=== PATIENT | female | born 1975 | race Caucasian/White ===

== ENCOUNTER 2024-10-31 15:47 | Outpatient (AMB) | payer OTHER, SELFPAY ==
--- NOTE | 2024-10-31 15:55 | A.OFFPC_ITS ---
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 Weatherization Installer Required: No Accompanied by: Self / Same As Patient Allergies No Known Allergies Allergy (Verified 10/31/24 15:56) Tobacco use date assessed: 10/31/24 Dental Screening Dental Screen Date: 10/31/24 Did you have a dental visit in the last 12 months?: Yes Did you have a dental problem in the last 6 months where you did not have access to dental care?: No Was dental information given to patient?: Patient has dentist HPI HPI Comments History of Present Illness Details History of Present Illness The patient is a 49-year-old female presenting with multiple chronic conditions including fibromyalgia, neuropathy, diabetes, and hypertension. Fibromyalgia: - The patient reports fibromyalgia, a ch ronic condition characterized by widespread musculoskeletal pain. Neuropathy: - The patient experiences neuropathy not related to diabetes, possibly associated with fibromyalgia. Diabetes Mellitus: - The patient has a history of diabetes mellitus and is advised to have regular ophthalmology and podiatry evaluations. Hypertension: - The patient has a history of hypertens ion and is currently on medication management. Cardiac Arrhythmia: - The patient has cardiac arrhythmia and is on metoprolol and diltiazem for management. Sleep Apnea: - The patient uses a CPAP machine for sl eep apnea management. Anxiety and Depression: - The patient is treated for anxiety and depression with Cymbalta and Ambien. Health Maintenance - Mammogram recommended due to the patie nt's age and history. - Regular ophthalmology and podiatry jose galloway advised for diabetes management. Review of Systems - Musculoskeletal: Reports widespread mu sculoskeletal pain. - Neurological: Reports neuropathy not r elated to diabetes. - Cardiovascular: Reports tachycardia an d cardiac arrhythmia. - Respiratory: Reports use of CPAP machi ne for sleep apnea. - Psychiatric: Reports anxiety and depre ssion, treated with medication. 10-point ROS reviewed and negative excep t as noted in HPI Allergies Medications - Metoprolol for cardiac arrhythmia - Diltiazem for cardiac arrhythmia - Cymbalta for anxiety and depression - Ambien for insomnia related to anxiety and depression Medication History - Metoprolol: Used for cardiac arrhythmi a, no adverse effects reported. - Diltiazem: Used for cardiac arrhythmia , no adverse effects reported. - Cymbalta: Used for anxiety and depress ion, no adverse effects reported. - Ambien: Used for insomnia related to a nxiety and depression, no adverse effects reported. Current Substance Use Substance Use History Past Medical History - Fibromyalgia - Neuropathy - Diabetes Mellitus - Gastroesophageal Reflux Disease (GERD) - Hypertension - Pulmonary Artery Disease - Osteoarthritis - Spondylosis - Scoliosis - Knee Fracture - Cardiac Arrhythmia - Tachycardia - Sleep Apnea - Anxiety - Depression Past Surgical History Family History Social History - The patient lives with her niece and h davian, having moved from [place] last year. - Reports normal dietary habits and cont inues to consume sweets despite diabetes. Physical Exam General: No apparent distress. Alert and oriented x 3. Head: Normocephalic, atraumatic Eyes: Pupils equal, round, and reactive to light. Extraocular movements intact Throat: O ropharynx clear. Mucus membranes moist Neck: Supple. No l eft anterior descending artery distention. No jugular vein distention. No bruit. Cardiovascular: Irregular rate and rhythm. Cardiac arrhythmia noted. Normal S1 and S2. No murmurs, rubs, or gallops Lungs: Clear to auscultation bilaterally. Breath sounds equal bilaterally. No rales, ronchi, or wheezes. Abdomen: Non-tender. Non-distended. Bowel sounds auscultated. No hepatosplenomegaly. No mass/rebound/guarding Extremities: No c lubbing, cyanosis, and edema. 2+ pulses Neuro: Central nerves II-XII grossly intact. Motor/sensory intact. Reflexes 2. Gait normal Skin: Warm, dry, and intact. No rash. Discussion Notes I discussed with the patient the need for regular follow-ups with specialists including ophthalmology and podiatry for diabetes management. We also talked about the importance of mammograms and other preventative screenings. I provided referrals to various specialists and emphasized the importance of adhering to prescribed medications and lifestyle modifications. Plan 1. Fibromyalgia M79.7 - Referral to rheumatology for further m anagement. 2. Polyneuropathy, unspecified G62 .9 - Referral to neurology for further eval uation. 3. Type 2 diabetes mellitus without comp lications E11.9 HCC 19 - Recommended regular ophthalmology and podiatry evaluations. 4. Essential (primary) hypertension I10 - Continue current medication regimen an d monitor blood pressure regularly. 5. Cardiac arrhythmia, unspecified I49.9 - Continue metoprolol and diltiazem; ref erral to cardiology for further management. 6. Sleep apnea, unspecified G47.30 - Continue use of CPAP machine; referral to sleep specialist for follow-up. 7. Anxiety disorder, unspecified F 41.9 - Continue current medication regimen; r eferral to therapist for ongoing support. Patient Instructions - Follow up with specialists as referred , including rheumatology, neurology, cardiology, and sleep specialist. - Continue using CPAP machine for sleep apnea. - Maintain current medication regimen an d monitor symptoms. - Schedule regular ophthalmology and pod iatry appointments for diabetes management. - Schedule a mammogram as part of preven tative care. [facility] Family History (Updated 10/31/24 @ 16:23 by Queta Castañeda MA) Father Heart problem Diabetes Mother Fibromyalgia Diabetes High blood pressure Social History (Updated 10/31/24 @ 15:58 by Queta Castañeda MA) Housing: Apartment Alcohol intake: current Alcohol intake frequency: does not drink Patient Tobacco Use Status: Current everyday Tobacco user Cigarettes Per Day: 4 service: No Current occupational status: disabled Cognitive needs: No Hearing needs: No Vision needs: Yes (rx glasses) Questionnaire PHQ-9 Over the last 2 weeks, how often have you been bothered by any of the following problems? 1. Little interest or pleasure in doing things: several days 2. Feeling down, depressed, or hopeless: several days 3. Trouble falling or staying asleep, or sleeping too much: not at all 4. Feeling tired or having little energy: nearly every day 5. Poor appetite or overeating: not at all 6. Feeling bad about yourself - or that you are a failure or have let yourself or your family down: not at all 7. Trouble concentrating on things, such as reading the newspaper or watching television: not at all 8. Moving or speaking so slowly that other people could have noticed. Or the opposite - being so fidgety or restless that you have been moving around a lot more than usual: not at all 9. Thoughts that you would be better off or of hurting yourself in some way: not at all Total score: 5 Depression Screening Interpretation: Negative Depression Screening Done: Yes Source: Developed by Drs. Joni Casas, Claudio Merida and colleagues, with an educational meggan from [employer]. Thrive Questionnaire Date Thrive assessed: 10/31/24 I am a: Patient What is your living situation today?: I have a steady place to live Within the past 12 months, did the food you bought not last and you didn't have the money to get more?: Never true Within the past 12 months, did you worry whether your food would run out before you got money to buy more?: Never true Do you have trouble paying for medicines?: No Do you have trouble getting transportation to medical appointments?: Yes Do you have trouble paying your heating and electricity bill?: No Do you have trouble taking care of your child, family member or friend?: No Are you currently unemployed and looking for a job?: No Are you interested in more education?: No Please select the resources that you would like help with: None Currently or been in a relationship where the following occur: No concerns reported THRIVE Score: 1 AUDIT C Alcohol Use Questionnaire (AUDIT-C) 1. How often do you have a drink containing alcohol?: Never 3. How often do you have six or more drinks on one occasion?: Never Total Score: 0 HINA-7 AMB Questionnaire HINA-7 Date HINA - 7 assessed: 10/31/24 Feeling nervous, anxious, or on edge: 2 = More than half the days Not being able to stop or control worryin = More than half the days Worrying too much about different things: 2 = More than half the days Trouble relaxin = More than half the days Being so restless that it is hard to sit still: 2 = More than half the days Becoming easily annoyed or irritable: 1 = Several days Feeling afraid as if something awful might happen: 0 = Not at all Total HINA-7 score (0-4 normal; 5-9 mild; 10-14 moderate; 15-21 severe): 11 Source: Developed by Luma De Guzman Kurt Kroenke and colleagues, with an educational meggan from [employer]. Physical exam (Primary Care) BMI result Body Mass Index 39.4 Tobacco/Smoking Status: Tobacco use Status Tobacco use date assessed 10/31/24 10/31/24 16:00 Patient Tobacco Use Status Never used Tobacco 10/31/24 16:00 PHQ-9: PHQ-9 Score PHQ-9: Total score 5 10/31/24 16:00 Depression Screening Interpretation: Negative Thrive Assessment: Date of Thrive Assessment Date Thrive assessed 10/31/24 10/31/24 16:00 Currently or been in a relationship where the following occur: No concerns reported Coding Level of Care Code New Pt Level 3 (87307) Diagnoses Encounter to establish care Z76.89 Routine lab draw Z01.89 Screening for lipoid disorders Z13.220 Screening for HIV (human immunodeficiency virus) Z11.4 Hypertension screen Z13.6 Encounter for screening, unspecified Z13.9 Adjustment disorder with anxiety F43.22 Class 2 obesity E66.812 Diabetes type 2 E11.9 Tachycardia R00.0 Arthritis, rheumatoid M06.9 Fibromyalgia M79.7 Arrhythmia I49.9 Pulmonary hypertension I27.20 Obstructive sleep apnea G47.33 Anxiety and depression F41.9; F32.A Psychosis F29 Screening for malignant neoplasm of breast Z12.39 Assessment & Plan Assessment & Plan (1) Encounter to establish care: Code(s): Z76.89 - Persons encountering health services in other specified circumstances (2) Routine lab draw: Code(s): Z01.89 - Encounter for other specified special examinations (3) Screening for lipoid disorders: Code(s): Z13.220 - Encounter for screening for lipoid disorders (4) Screening for HIV (human immunodeficiency virus): Code(s): Z11.4 - Encounter for screening for human immunodeficiency virus [HIV] (5) Hypertension screen: Code(s): Z13.6 - Encounter for screening for cardiovascular disorders (6) Encounter for screening, unspecified: Code(s): Z13.9 - Encounter for screening, unspecified (7) Adjustment disorder with anxiety: Code(s): F43.22 - Adjustment disorder with anxiety (8) Class 2 obesity: Code(s): E66.812 - Obesity, class 2 (9) Diabetes type 2: Code(s): E11.9 - Type 2 diabetes mellitus without complications (10) Tachycardia: Code(s): R00.0 - Tachycardia, unspecified (11) Arthritis, rheumatoid: Code(s): M06.9 - Rheumatoid arthritis, unspecified (12) Fibromyalgia: Code(s): M79.7 - Fibromyalgia (13) Arrhythmia: Code(s): I49.9 - Cardiac arrhythmia, unspecified (14) Pulmonary hypertension: Code(s): I27.20 - Pulmonary hypertension, unspecified (15) Obstructive sleep apnea: Code(s): G47.33 - Obstructive sleep apnea (adult) (pediatric) (16) Anxiety and depression: Code(s): F41.9 - Anxiety disorder, unspecified; F32.A - Depression, unspecified (17) Psychosis: Code(s): F29 - Unspecified psychosis not due to a substance or known physiological condition (18) Screening for malignant neoplasm of breast: Code(s): Z.39 - Encounter for other screening for malignant neoplasm of breast Plan Orders: Orders Complete Blood Count Auto Diff Today - Persons encountering health services in other specified circumstances Hepatitis C Antibody Today . - Persons encountering health services in other specified circumstances HIV Ab/Ag Today . - Persons encountering health services in other specified circumstances Microalbumin, Random (w Creat) Today Z. - Persons encountering health services in other specified circumstances TSH reflex Free T4 Today . - Persons encountering health services in other specified circumstances Comprehensive Met. Panel Today - Persons encountering health services in other specified circumstances Hemoglobin A1c Today Z. - Persons encountering health services in other s pecified circumstances Hepatitis B Surface Antibody Today . - Persons encountering health services in other specified circumstances Hepatitis B Surface Antigen Today . - Persons encountering health services in other specified circumstances Lipid Panel Today - Persons encountering health services in other specified circumstances UA CC w/rflx Micro + Cult Today - Persons encountering health services in other specified circumstances Vitamin B12 and Folate Today Z. - Persons encountering health services in other specified circumstances Vitamin D 1,25 dihydroxy Today Z. - Persons encountering health services in other specified circumstances MM screening mammo BI Today Z12.39 - Encounter for other screening for malignant neoplasm of breast Referrals Ophthalmology Referral E11.9 - Type 2 diabetes mellitus without complications Rheumatology Referral M06.9 - Rheumatoid arthritis, unspecified, M79.7 - Fibromyalgia Pulmonology Referral I27.20 - Pulmonary hypertension, unspecified Cardiology Referral I27.20 - Pulmonary hypertension, unspecified, I49.9 - Cardiac arrhythmia, unspecified, R00.0 - Tachycardia, unspecified Open Access Screening Colonoscopy Referral Z12.11 - Encounter for screening for malignant neoplasm of colon, Z12.12 - Encounter for screening for malignant neoplasm of rectum Nutrition/Dietitian Referral E11.9 - Type 2 diabetes mellitus without complications, E66.812 - Obesity, class 2 Podiatry Referral E11.9 - Type 2 diabetes mellitus without complications
[2024-10-31 16:06] VITALS: BP 102/78; PULSE 101; RESP 16; TEMP 36.6; O2SAT 95; BMI 39.4
== END 2024-10-31 16:57 | disposition home or self-care (01) ==
PROVIDERS: PCP Student in an Organized Health Care Education/Training Program; Visit Provider Student in an Organized Health Care Education/Training Program
DX: M79.7 Fibromyalgia (principal); E11.40 Type 2 diabetes mellitus with diabetic neuropathy, unspecified; M06.9 Rheumatoid arthritis, unspecified; F29 Unspecified psychosis not due to a substance or known physiological condition; R00.0 Tachycardia, unspecified; I27.20 Pulmonary hypertension, unspecified; E66.812 Obesity, class 2; F43.22 Adjustment disorder with anxiety; I49.9 Cardiac arrhythmia, unspecified; G47.33 Obstructive sleep apnea (adult) (pediatric); F41.9 Anxiety disorder, unspecified; F32.A Depression, unspecified

== ENCOUNTER → 2024-10-31 15:47 | Outpatient (BNVA) | payer OTHER, SELFPAY | PROVIDERS: PCP Student in an Organized Health Care Education/Training Program; Visit Provider Student in an Organized Health Care Education/Training Program | DX: Z76.89 Persons encountering health services in other specified circumstances (principal); F43.22 Adjustment disorder with anxiety; E66.812 Obesity, class 2; Z68.39 Body mass index [BMI] 39.0-39.9, adult; E11.42 Type 2 diabetes mellitus with diabetic polyneuropathy; R00.0 Tachycardia, unspecified; M06.9 Rheumatoid arthritis, unspecified; M79.7 Fibromyalgia; I49.9 Cardiac arrhythmia, unspecified; I27.20 Pulmonary hypertension, unspecified; G47.33 Obstructive sleep apnea (adult) (pediatric); F41.9 Anxiety disorder, unspecified; F32.A Depression, unspecified; F29 Unspecified psychosis not due to a substance or known physiological condition; Z79.899 Other long term (current) drug therapy; Z13.31 Encounter for screening for depression; Z13.39 Encounter for screening examination for other mental health and behavioral disorders | CPT/HCPCS: 99202 ==

== ENCOUNTER 2024-11-04 11:06 | Outpatient (REF) | payer OTHER, SELFPAY ==
[2024-11-04 13:43] LABS: Microalbum/Creatinine Ratio Ur 5.7 ug/mg cr (<30)
[2024-11-04 13:48] LABS: MANUAL DIFF FLAG NO
[2024-11-04 13:51] LABS: Hematocrit 37.9 % (37.0-47.0); Hemoglobin 12.0 g/dl (12.0-16.0); Imm Gran Abs Auto 0.04 X10*3/uL (0.00-0.03); Imm Gran Pct Auto 0.4 % (0.0-0.4); Lymphocytes Absolute Auto 1.9 X10*3/uL (1.2-4.9); Mean Corpuscular HGB Conc 31.7 g/dl (31.0-35.0); Mean Corpuscular Hemoglobin 27.3 pg (27.0-33.0); Mean Corpuscular Volume 86.3 fL (80.0-98.0); NRBC Abs Auto 0.000 X10*3/uL (0.0-0.012); NRBC Pct Auto 0.0 /100WBC (0.0-0.2); Platelet Count 249 X10*3/uL (160-400); Red Blood Count 4.39 X10*6/uL (4.20-5.50); White Blood Count 10.2 X10*3/uL (4.8-10.8)
[2024-11-04 14:03] LABS: Appearance Urine Clear; Glucose Urine UA >=1000 mg/dL (Negative); PH 6.5 (5.0-9.0); Specific Gravity - Urine 1.015 (1.005-1.025); UMIC TRIGGER UACC YES
[2024-11-04 14:33] LABS: Hemoglobin A1C 119.2007 umol/L; Total Hemoglobin (HGBA1C) 2973.6121 umol/L
[2024-11-04 18:26] LABS: Alanine Aminotransferase 37 U/L (0-31); Albumin Level 4.5 g/dL (3.5-5.0); Alkaline Phosphatase 115 U/L (39-117); Anion Gap 12 (12-20); Aspartate Amino Transferase 32 U/L (5-31); Blood Urea Nitrogen 9 mg/dL (9-16); Calcium 8.9 mg/dL (8.4-10.2); Carbon Dioxide 28 mmol/L (22-29); Chloride 103 mmol/L (96-108); Cholesterol 124 mg/dL (<200); Estimated Glomerular Filt Rate > 60; HDL Cholesterol 32 mg/dL (>40); Potassium 3.9 mmol/L (3.3-5.1); Sodium 139 mmol/L (135-145); Total Protein 7.0 g/dL (6.5-8.0); Triglycerides 141 mg/dL (<150)
[2024-11-04 18:38] LABS: Folate 4.3 ng/mL (> or = 4.0); Vitamin B12 193 pg/mL (200-900)
[2024-11-05 08:57] LABS: HBS Num1 11.73 mIU/mL (0-7.99); HBsAGNum1 0.38 S/CO (0.00-0.99); HIV Num 1 0.05 S/CO (0.00-0.99); Hepatitis B Surface Antigen Negative (Negative); ~HepC Num1 0.09 S/CO (0.00-0.79); ~Hepatitis C Antibody Nonreactive (Nonreactive)
[2024-11-05 11:13] LABS: HBS Num2 11.66 mIU/mL (0-7.99); HBS Num3 10.83 mIU/mL (0-7.99); ~Hepatitis B Surface Antibody GRAYZONE (Nonreactive)
[2024-11-11 15:43] LABS: VITAMIN D (1,25 OH) D3 45 pg/mL; Vit D (1,25-Dihydroxy) Total 45 pg/mL (18-72); Vitamin D (1,25 OH) D2 <8 pg/mL
== END 2024-11-04 11:07 | disposition home or self-care (01) ==
LOC: HO.HKASLDS 11:06
PROVIDERS: Visit Provider Student in an Organized Health Care Education/Training Program
DX: Z76.89 Persons encountering health services in other specified circumstances (principal); Z11.59 Encounter for screening for other viral diseases; Z11.4 Encounter for screening for human immunodeficiency virus [HIV]
CPT/HCPCS: 36415; 80053; 80061; 81001; 81003; 82043; 82570; 82607; 82652; 82746; 83036; 84443; 85025; 86706; 86803; 87340; 87389

== ENCOUNTER 2024-11-14 09:46 | Outpatient (AMB) | payer OTHER, SELFPAY ==
--- NOTE | 2024-11-14 10:05 | A.OFFPC_ITS ---
Vital Signs 11/14/24 10:07 Height 5 ft 3.78 in Weight 227 lb 2 oz BMI 39.3 BP 112/67 Blood Pressure Location Rt brachial Position Sitting Respiration 16 Pulse 106 H Pulse Source Pulse Oximeter Temp 98.4 F Temp Source Oral Pulse Oximetry (%) 98 Oxygen Delivery Method Room Air Intake Visit Reasons: 2 week follow up Intake Note: establish care and diabetes. 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 Accompanied by: Self / Same As Patient Allergies No Known Allergies Allergy (Verified 11/14/24 10:06) Tobacco use date assessed: 10/31/24 Dental Screening Dental Screen Date: 10/31/24 Did you have a dental visit in the last 12 months?: Yes Did you have a dental problem in the last 6 months where you did not have access to dental care?: No Was dental information given to patient?: Patient has dentist HPI HPI Comments History of Present Illness Details History of Present Illness The patient is a 49-year-old female presenting with chronic back pain and concerns about recent lab results indicating prediabetes and elevated liver enzymes. Chronic back pain: - The patient has a history of chronic b ack pain for which she has previously attended physical therapy and consulted a pain specialist without significant relief. Tachycardia: - The patient has consistently elevated pulse rates, noted at 101 bpm and 106 bpm, and has undergone evaluation by a poison information specialist including an electrocardiogram. Prediabetes: - The patient's hemoglobin A1c is 5.8%, indicating prediabetes, and she has been advised to modify her diet to prevent progression to diabetes. Elevated liver enzymes: - The patient has slightly elevated AST and ALT levels, with AST at 32 U/L and ALT at 37 U/L, and a liver sonography has been recommended for further e valuation. Vitamin B12 deficiency: - The patient's vitamin B12 level is 193 pg/mL, below the normal range, and supplementation has been prescribed. Low HDL cholesterol: - The patient has low HDL cholesterol at 32 mg/dL, which may contribute to increased liver workload. Allergies: - The patient has elevated eosinophils, likely due to allergies, but is currently asymptomatic. Review of Systems - Cardiovascular: Reports consistently e levated pulse rates. Denies chest pain or syncope. - Endocrine: Reports awareness of predia betes diagnosis. Denies symptoms of diabetes. - Gastrointestinal: Denies abdominal delvin n or jaundice. - Neurological: Denies headaches or dizz iness. - Respiratory: Denies dyspnea or cough. 10-point ROS reviewed and negative excep t as noted in HPI Past Medical History - History of chronic back pain - History of tachycardia Health Maintenance - Recommended dietary modifications to m anage prediabetes - Liver sonography recommended for eleva lashanda liver enzymes - Vitamin B12 supplementation prescribed Physical Exam General: Well-appearing, in no acute distress. Vital signs: Pulse elevated at 106. HEENT: Normocephalic, atraumatic. PERRLA, EOMI. Conjunctiva clear, sclera anicteric. Oropharynx clear, mucous membranes moist. TMs intact bilaterally. Neck: Supple, no lymphadenopathy, no thyromegaly, no JVD or carotid bruits. Cardiovascular: RRR, normal S1/S2, no murmurs, rubs, or gallops. Peripheral pulses 2+ and symmetric. No edema. Respiratory: Lungs clear to auscultation bilaterally, no wheezes, rales, or rhonchi. Normal effort. Abdomen: Soft, non-tender, non-distended. Normoactive bowel sounds. No hepatosplenomegaly, no masses. MSK: Full range of motion, no joint swelling or deformity. Normal gait. Skin: Warm, dry, intact. No rashes, lesions, or pallor. Neuro: Alert and oriented x3. Cranial nerves II-XII intact. Strength 5/5 throughout. Sensation intact. Reflexes 2+ symmetric. Normal coordination and gait. Psych: Appropriate mood and affect. Normal judgment and insight. Plan 1. Chronic Back Pain - The patient has been advised to contin ue exploring non-pharmacological interventions such as relaxation techniques to manage chronic back pain. 2. Tachycardia - The patient is advised to continue mon itoring heart rate and follow up with cardiology as needed. 3. Prediabetes - The patient is advised to implement di etary changes to manage prediabetes and prevent progression to diabetes. 4. Elevated Liver Enzymes - A liver sonography is recommended to f paula evaluate elevated liver enzymes. 5. Vitamin B12 Deficiency - Vitamin B12 supplementation has been p rescribed to address deficiency. 6. Low Hdl Cholesterol - The patient is advised to engage in li festyle modifications to improve HDL cholesterol levels. 7. Allergies - The patient is currently asymptomatic, and no immediate intervention is required for allergies. Discussion Notes During the visit, I discussed with the patient the importance of managing prediabetes through dietary changes and the need for a liver sonography to evaluate elevated liver enzymes. We also reviewed the significance of vitamin B12 supplementation and lifestyle modifications to improve HDL cholesterol levels. The patient was advised to continue monitoring her heart rate and follow up with cardiology as needed. We discussed non-pharmacological interventions for chronic back pain, including relaxation techniques. Patient was informed and verbally consented to the use of an ambient scribe for clinic note documentation during this visit. Patient Instructions - Follow a healthy diet to manage predia betes. - Schedule a liver sonography for furthe r evaluation. - Take vitamin B12 supplements as prescr ibed. - Monitor heart rate regularly and consu lt cardiology if needed. - Practice relaxation techniques to help manage back pain. PFSH Family History Father Heart problem Diabetes Mother Fibromyalgia Diabetes High blood pressure Social History Housing: Apartment Alcohol intake: current Alcohol intake frequency: does not drink Patient Tobacco Use Status: Current everyday Tobacco user Cigarettes Per Day: 4 service: No Current occupational status: disabled Cognitive needs: No Hearing needs: No Vision needs: Yes (rx glasses) Questionnaire PHQ-9 Over the last 2 weeks, how often have you been bothered by any of the following problems? 1. Little interest or pleasure in doing things: several days 2. Feeling down, depressed, or hopeless: several days 3. Trouble falling or staying asleep, or sleeping too much: not at all 4. Feeling tired or having little energy: nearly every day 5. Poor appetite or overeating: not at all 6. Feeling bad about yourself - or that you are a failure or have let yourself or your family down: not at all 7. Trouble concentrating on things, such as reading the newspaper or watching television: not at all 8. Moving or speaking so slowly that other people could have noticed. Or the opposite - being so fidgety or restless that you have been moving around a lot more than usual: not at all 9. Thoughts that you would be better off or of hurting yourself in some way: not at all Total score: 5 Depression Screening Interpretation: Negative Depression Screening Done: Yes Source: Developed by Luma De Guzman. Amol, Claudio Moncada and colleagues, with an educational meggan from [employer] ([employer]). Thrive Questionnaire Date Thrive assessed: 10/31/24 I am a: Patient What is your living situation today?: I have a steady place to live Within the past 12 months, did the food you bought not last and you didn't have the money to get more?: Never true Within the past 12 months, did you worry whether your food would run out before you got money to buy more?: Never true Do you have trouble paying for medicines?: No Do you have trouble getting transportation to medical appointments?: Yes Do you have trouble paying your heating and electricity bill?: No Do you have trouble taking care of your child, family member or friend?: No Do you have trouble with day-to-day activities such as bathing, preparing meals, shopping, managing finances, etc.?: No Are you currently unemployed and looking for a job?: No Are you interested in more education?: No Please select the resources that you would like help with: None Currently or been in a relationship where the following occur: No concerns reported THRIVE Score: 1 AUDIT C Alcohol Use Questionnaire (AUDIT-C) 1. How often do you have a drink containing alcohol?: Monthly or less 2. How many drinks containing alcohol do you have on a typical day when you are drinking?: 1 or 2 3. How often do you have six or more drinks on one occasion?: Never Total Score: 1 HINA-7 AMB Questionnaire HINA-7 Date HINA - 7 assessed: 10/31/24 Feeling nervous, anxious, or on edge: 2 = More than half the days Not being able to stop or control worryin = More than half the days Worrying too much about different things: 2 = More than half the days Trouble relaxin = More than half the days Being so restless that it is hard to sit still: 2 = More than half the days Becoming easily annoyed or irritable: 1 = Several days Feeling afraid as if something awful might happen: 0 = Not at all Total HINA-7 score (0-4 normal; 5-9 mild; 10-14 moderate; 15-21 severe): 11 Source: Developed by Luma De Guzman Kurt Kroenke and colleagues, with an educational meggan from [employer] ([employer]). Physical exam (Primary Care) Vital Signs: Last Vital Signs Temp 98.4 F 11/14/24 10:07 Pulse 106 H 11/14/24 10:07 Resp 16 11/14/24 10:07 BP 112/67 11/14/24 10:07 Pulse Ox 98 11/14/24 10:07 Oxygen Delivery Method Room Air 11/14/24 10:07 BMI result Body Mass Index 39.3 Tobacco/Smoking Status: Tobacco use Status Tobacco use date assessed 10/31/24 11/14/24 10:13 Patient Tobacco Use Status Current everyday Tobacco 11/14/24 10:13 PHQ-9: PHQ-9 Score PHQ-9: Total score 5 11/14/24 10:13 Depression Screening Interpretation: Negative Thrive Assessment: Date of Thrive Assessment Date Thrive assessed 10/31/24 11/14/24 10:13 Currently or been in a relationship where the following occur: No concerns reported Coding Level of Care Code Est Pt Level 3 (24459) Diagnoses Chronic lower back pain M54.50; G89.29 Tachycardia R00.0 Prediabetes R73.03 Elevated liver enzymes R74.8 Vitamin B12 deficiency E53.8 Low HDL (under 40) E78.6 Encounter to discuss test results Z71.2 Fibromyalgia M79.7 Neuropathy G62.9 Type 2 diabetes mellitus E11.9 Hypertension I10 Cardiac arrhythmia I49.9 Sleep apnea G47.30 Anxiety and depression F41.9; F32.A Assessment & Plan Assessment & Plan (1) Chronic lower back pain: Code(s): M54.50 - Low back pain, unspecified; G89.29 - Other chronic pain (2) Tachycardia: Code(s): R00.0 - Tachycardia, unspecified (3) Prediabetes: Code(s): R73.03 - Prediabetes (4) Elevated liver enzymes: Code(s): R74.8 - Abnormal levels of other serum enzymes (5) Vitamin B12 deficiency: Code(s): E53.8 - Deficiency of other specified B group vitamins (6) Low HDL (under 40): Code(s): E78.6 - Lipoprotein deficiency (7) Encounter to discuss test results: Code(s): Z71.2 - Person consulting for explanation of examination or test findings (8) Fibromyalgia: Code(s): M79.7 - Fibromyalgia (9) Neuropathy: Code(s): G62.9 - Polyneuropathy, unspecified (10) Type 2 diabetes mellitus: Code(s): E11.9 - Type 2 diabetes mellitus without complications (11) Hypertension: Code(s): I10 - Essential (primary) hypertension (12) Cardiac arrhythmia: Code(s): I49.9 - Cardiac arrhythmia, unspecified (13) Sleep apnea: Code(s): G47.30 - Sleep apnea, unspecified (14) Anxiety and depression: Code(s): F41.9 - Anxiety disorder, unspecified; F32.A - Depression, unspecified Plan Medications: New cyanocobalamin (vitamin B-12) 500 mcg sublingual DAILY 60 tabs 0RF diltiazem HCl ER 60 mg PO BID 90 caps 0RF duloxetine 20 mg PO BID 90 caps 0RF gabapentin 800 mg PO BEDTIME 90 tabs 0RF Lactobacillus acidophilus (Abatinex) 100 mmu cells PO DAILY 90 caps 0RF lorazepam 0.5 mg PO TID PRN 30 tabs 0RF anxiety metoprolol succinate ER 25 mg PO DAILY 90 tabs 0RF omeprazole 20 mg PO DAILY 90 caps 0RF amitriptyline 100 mg PO BEDTIME 90 tabs 0RF dicyclomine 10 mg PO BID 90 caps 0RF empagliflozin (Jardiance) 25 mg PO DAILY 90 tabs 0RF hydrochlorothiazide 12.5 mg PO DAILY 90 tabs 0RF sulindac 200 mg PO BID 180 tabs 0RF zolpidem 10 mg PO BEDTIME PRN 30 tabs 0RF insomnia Changed From tirzepatide (weight loss) (Zepbound) 5 mg subcut QWEEK To tirzepatide (weight loss) (Zepbound) 7.5 mg (0.75 mL) subcut QWEEK 2 mL 0RF
[2024-11-14 10:07] VITALS: BP 112/67; PULSE 106; RESP 16; TEMP 36.9; O2SAT 98; BMI 39.3
== END 2024-11-14 11:00 | disposition home or self-care (01) ==
LOC: HO.HMCFMS 09:47
PROVIDERS: PCP Student in an Organized Health Care Education/Training Program; Visit Provider Student in an Organized Health Care Education/Training Program
DX: R00.0 Tachycardia, unspecified (principal); M54.50 Low back pain, unspecified; G89.29 Other chronic pain; E11.9 Type 2 diabetes mellitus without complications; R73.03 Prediabetes; R74.8 Abnormal levels of other serum enzymes; E53.8 Deficiency of other specified B group vitamins; E78.6 Lipoprotein deficiency; Z71.2 Person consulting for explanation of examination or test findings; M79.7 Fibromyalgia; G62.9 Polyneuropathy, unspecified; I10 Essential (primary) hypertension

== ENCOUNTER → 2024-11-14 09:46 | Outpatient (BNVA) | payer OTHER, SELFPAY | PROVIDERS: PCP Student in an Organized Health Care Education/Training Program; Visit Provider Student in an Organized Health Care Education/Training Program | DX: M54.50 Low back pain, unspecified (principal); G89.29 Other chronic pain; R00.0 Tachycardia, unspecified; R74.8 Abnormal levels of other serum enzymes; E53.8 Deficiency of other specified B group vitamins; E78.6 Lipoprotein deficiency; M79.7 Fibromyalgia; E11.42 Type 2 diabetes mellitus with diabetic polyneuropathy; I10 Essential (primary) hypertension; I49.9 Cardiac arrhythmia, unspecified; G47.30 Sleep apnea, unspecified; F41.9 Anxiety disorder, unspecified; F32.A Depression, unspecified; Z13.31 Encounter for screening for depression | CPT/HCPCS: 99212 ==

== ENCOUNTER 2024-11-20 11:23 | Outpatient (AMB) | payer OTHER, SELFPAY ==
--- NOTE | 2024-11-20 11:38 | MHC.OFFVIS ---
Vital Signs 11/20/24 11:39 Height 5 ft 3 in Weight 227 lb BMI 40.2 Intake Visit Reasons: New Pt- Diabetic foot exam Intake Note: Sarah is a 49 year old female who presents today as a new patient for a diabetic foot exam. Patient mentions she does not have the equipment needed to check her sugars. She states she experiences occasional numbness, burning, tingling, and pin and needles sensation in her foot. She has no history of wounds in her feet. Patient reports she has sciatica and lumbar pain. Patient has a medical history of fibromyalgia, scoliosis, neuropathy and she states she is currently taking gabapentin. She was diagnosed in [place] with plantar fasciitis over 10 years ago. Loss Prevention And Safety Manager Required: Yes Loss Prevention And Safety Manager Services: Loss Prevention And Safety Manager Present Loss Prevention And Safety Manager Name: [id number] Allergies No Known Allergies Allergy (Verified 11/14/24 10:06) HPI HPI New Pt- Diabetic foot exam: Details: The patient is a 49-year-old female presenting with burning and tingling sensations in her feet. These symptoms occur primarily when standing and are more pronounced in the afternoon. She also experiences sciatica, particularly affecting her left hip, which exacerbates her discomfort. The patient has been informed that her foot symptoms may be related to fibromyalgia or her neuropathy. The patient is currently taking Jardiance for diabetes management. She is taking gabapentin. Medical History: - Scoliosis - Osteoarthritis - Herniated disc - Sciatica - Fibromyalgia (suspected) Medications: - Jardiance for prediabetes - Gabapentin for neuropathic symptoms PFSH Family History Father Heart problem Diabetes Mother Fibromyalgia Diabetes High blood pressure Social History Housing: Apartment Alcohol intake: current Alcohol intake frequency: does not drink Patient Tobacco Use Status: Current everyday Tobacco user Cigarettes Per Day: 4 service: No Current occupational status: disabled Cognitive needs: No Hearing needs: No Vision needs: Yes (rx glasses) Review of Systems Const All systems reviewed & are unremarkable except as noted in HPI and below Physical Exam Vital Signs: BMI result Body Mass Index 40.2 Extrem Other: *Bilateral Lower Extremity Focused Diabetic Foot Exam Vascular: DP/PT 2/4, CFT<3s to digits, TG warm to cool, no pedal edema, pedal hair absent Derm: Skin: No open lesions, ulcerations, or calluses. Interdigital spaces: Clear, no maceration or fungal infection. Nails: No onychomycosis, paronychia, or ingrown nails. Neuro: Anatone-ab monofilament (10g) test 10/10 intact to right foot, 10/10 intact to left foot. Msk: Deformities: No evidence of hammertoes, bunions, Charcot changes, or other structural abnormalities. Muscle strength: 5/5 in all muscle groups. Gait: Normal, no antalgic or steppage gait observed. Footwear Assessment: Shoes inspected; appropriate fit, no excessive wear, or foreign objects noted. 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 No loss of protective sensation or peripheral arterial disease. No plans for further testing/referrals for non-invasive vascular studies. Patient is at low risk for diabetic foot complications at this time. Recommendations: Continue routine foot care and daily self-inspection. Recommend moisturizing daily. Recommend supportive proper fitting shoe-wear. The patient may require diabetic shoes in the future. Reinforced diabetic foot education and risks from peripheral neuropathy. (2) Neuropathy: Code(s): G62.9 - Polyneuropathy, unspecified Plan: Referred for EMG/NCV. (3) Fibromyalgia: Code(s): M79.7 - Fibromyalgia Plan: Possible etiology / small fiber neuropathy. (4) Lumbar radiculopathy, chronic: Code(s): M54.16 - Radiculopathy, lumbar region Category: Medical Plan: Recommended work up with her PCP and possible referral to Spine surgery. Orders: Orders NE nerve conduction velocity Today G62.9 - Polyneuropathy, unspecified NE electromyogram (EMG) Today G62.9 - Polyneuropathy, unspecified Coding Level of Care Code New Pt Level 4 (85378) Diagnoses Type 2 diabetes mellitus E11.9 Diabetes mellitus custodial insulin use: without custodial use Diabetes mellitus complication detail: with autonomic neuropathy Neuropathy G62.9 Fibromyalgia M79.7 Lumbar radiculopathy, chronic M54.16 Time Spent (min) 35
[2024-11-20 11:39] VITALS: BMI 40.2
== END 2024-11-20 12:02 | disposition home or self-care (01) ==
LOC: HO.HPODS 11:24
PROVIDERS: PCP Student in an Organized Health Care Education/Training Program; Visit Provider Student in an Organized Health Care Education/Training Program
DX: E11.43 Type 2 diabetes mellitus with diabetic autonomic (poly)neuropathy (principal); M79.7 Fibromyalgia; M54.16 Radiculopathy, lumbar region
CPT/HCPCS: 99204

== ENCOUNTER → 2024-11-20 11:23 | Outpatient (BNVA) | payer OTHER, SELFPAY | PROVIDERS: PCP Student in an Organized Health Care Education/Training Program; Visit Provider Student in an Organized Health Care Education/Training Program | DX: E11.40 Type 2 diabetes mellitus with diabetic neuropathy, unspecified (principal); M79.7 Fibromyalgia; M54.16 Radiculopathy, lumbar region; Z79.84 Long term (current) use of oral hypoglycemic drugs | CPT/HCPCS: 99202 ==

== ENCOUNTER 2024-11-21 13:43 | Outpatient (AMB) | payer OTHER, SELFPAY ==
--- NOTE | 2024-11-21 14:26 | MHC.AMNUTRGE ---
VS Expanded 11/21/24 14:27 Height 5 ft 3 in Weight 223 lb 15.834 oz BMI 39.7 Intake Visit Reasons: Obesity, class 2 Allergies No Known Allergies Allergy (Verified 11/14/24 10:06) Nutrition Presentation Details: PT presents for MNT for obesity with T2DM food frequency fruits: 0-1/d ve-3x/wk dairy: 3/d starches >20/d fish : 0-1/wk Reports having 3 meals/day and inc appetite at night , choosing higher sugar foods wants to work on weight loss physical activity --- etoh/smoking-- BS Monitoring Most Recent Diabetes Results: Microalb/Creat Ratio, (<30) 5.7 ug/mg cr 11/04/24 Cholesterol, (<200) 124 mg/dL 11/04/24 HDL Cholesterol, (>40) 32 mg/dL L 11/04/24 Triglycerides, (<150) 141 mg/dL 11/04/24 Creatinine, (0.5-1.4) 0.81 mg/dL 11/04/24 BUN, (9-16) 9 mg/dL 11/04/24 Sodium, (135-145) 139 mmol/L 11/04/24 Potassium, (3.3-5.1) 3.9 mmol/L 11/04/24 Chloride, (96-108) 103 mmol/L 11/04/24 Carbon Dioxide, (22-29) 28 mmol/L 11/04/24 Calcium, (8.4-10.2) 8.9 mg/dL 11/04/24 AST, (5-31) 32 U/L H 11/04/24 ALT, (0-31) 37 U/L H 11/04/24 Total Protein, (6.5-8.0) 7.0 g/dL 11/04/24 Albumin, (3.5-5.0) 4.5 g/dL 11/04/24 PFSH Family History Father Heart problem Diabetes Mother Fibromyalgia Diabetes High blood pressure Social History Housing: Apartment Alcohol intake: current Alcohol intake frequency: does not drink Patient Tobacco Use Status: Current everyday Tobacco user Cigarettes Per Day: 4 service: No Current occupational status: disabled Cognitive needs: No Hearing needs: No Vision needs: Yes (rx glasses) Assessment & Plan Assessment & Plan (1) Obesity (BMI 35.0-39.9 without comorbidity): Comment: A1c at 5.8 (11/14) Code(s): E66.9 - Obesity, unspecified Category: Medical Plan: Nut Dx: Excessive caloric intake related to obesity/pre dm as evidenced by statement of lack of nutrition education re calories/portion sizes Goal : lose 20 lbs in 6 months current wt:102 kg ( 12/14 ) est kcal needs as per MSJ: 1900 est protein needs as per 1 g/kg BW: 100 est fluid needs as per 30 ml/kg BW: 3000 Recommended fiber > 12 g /day and gradually increase up to 25-28 g /day or as tolerated Nutrition topics discussed : Reviewed (R), Pt verbalized understanding (V) , not applicable (N/A) R, : Healthy Plate Method Concept: R, : Carbohydrates: food sources of carbohydrates, relationship of carbohydrates to blood glucose, fatty liver GI health. Recommended total amount of carbohydrates per meals and snack. Differences between simple carbohydrates and complex carbohydrates R, : Lean protein foods including vegan , vegetarian sources of protein. Benefits of protein (including but not limited to healing, nutritional value , benefits in weight loss, glucose control R, V, N/A: Fats : Source of fats, benefits of fats. Difference between saturated and unsaturated fats. Saturated fats and its contribution to inflammation R, V, N/A: Fiber: food sources and role of fiber in the diet (including but not limited to its role as a prebiotic, benefits in constipation, role in IBS , role in glucose control and cholesterol level) R, V, N/A: Hydration: role of hydration and prevention of dehydration or over hydration. Foods and water content. R, V, N/A: Vitamins and Minerals in foods and supplements R, V, N/A: Interpreting food labels, including serving size, macronutrients, vitamins, minerals, allergens, ingredient list , % daily value Patient Instructions: Choose 1/2 tuna sand as bedtime snack (2 oz of tuna with vinegar and 1tsp of oil on whole wheat bread (less than 250 calories) Continue working on reducing sugars (from beverages/added to foods) Have water , fruit/herb infused water , goal 8- cups/day Coding Level of Care Code Nutr Indiv Intake (36440) Diagnoses Obesity (BMI 35.0-39.9 without comorbidity) E66.9 Time Spent (min) 30
[2024-11-21 14:27] VITALS: BMI 39.7
== END 2024-11-21 15:06 | disposition home or self-care (01) ==
LOC: HO.ENCR 13:44
PROVIDERS: PCP Student in an Organized Health Care Education/Training Program; Visit Provider Dietitian, Registered
DX: E66.9 Obesity, unspecified (principal)

== ENCOUNTER → 2024-11-21 13:43 | Outpatient (BNVA) | payer OTHER, SELFPAY | PROVIDERS: PCP Student in an Organized Health Care Education/Training Program; Visit Provider Dietitian, Registered | DX: E66.9 Obesity, unspecified (principal); Z68.39 Body mass index [BMI] 39.0-39.9, adult | CPT/HCPCS: 97802 ==

== ENCOUNTER 2024-12-10 10:26 | Outpatient (AMB) | payer OTHER, SELFPAY ==
--- NOTE | 2024-12-10 10:31 | A.OFFPC_ITS ---
Vital Signs 12/10/24 10:32 Height 5 ft 3.78 in Weight 224 lb BMI 38.7 BP 110/66 Blood Pressure Location Rt brachial Position Sitting Respiration 16 Pulse 102 H Pulse Source Pulse Oximeter Temp 98.2 F Temp Source Oral Pulse Oximetry (%) 99 Oxygen Delivery Method Room Air Intake Visit Reasons: med review Intake Note: establish care and diabetes. Deli Manager Required: No Accompanied by: Self / Same As Patient Allergies No Known Allergies Allergy (Verified 12/10/24 10:32) Tobacco use date assessed: 12/10/24 Dental Screening Dental Screen Date: 12/10/24 Did you have a dental visit in the last 12 months?: Yes Did you have a dental problem in the last 6 months where you did not have access to dental care?: No Was dental information given to patient?: Patient has dentist HPI HPI Comments History of Present Illness Details Consent Patient was informed and verbally consented to the use of an ambient scribe for clinic note documntation during this visit. History of Present Illness The patient is a 49-year-old female presenting with management of multiple chronic conditions. Heart failure with preserved ejection fraction: The cardiovascular symptoms began with palpitations and shortness of breath reported in April 2018. An echocardiogram in May 2018 showed mild to moderate reduction in left ventricular systolic function with an ejection fraction (EF) of 40-45%, resulting in a chronic heart failure diagnosis. A follow-up echocardiogram in July 2019 demonstrated a normalized EF of 65-70%. Idiopathic pulmonary hypertension: During a cardiac catheterization in August 2018, idiopathic pulmonary hypertension was identified with a mean pulmonary artery pressure of 44 mmHg. Morbid obesity: Her body mass index increased from 32.8 in 2018 to over 41 by 2023, indicating morbid obesity, leading to further metabolic complications. Type 2 diabetes mellitus: Initiated on a diabetic diet in 2018, with progression to type 2 diabetes by late 2023. Obstructive sleep apnea: Diagnosed in late 2019, following sleep study assessments, resulting in CPAP therapy. Chronic pain syndrome secondary to fibromyalgia: Chronic pain present since at least 2009 with a diagnosis of fibromyalgia in 2019. Pain is widespread affecting the back, shoulders, and limbs, rated between 6 to 8 on a 10-point scale. Extensive degenerative joint and disc disease: Recent imaging confirmed severe multilevel degenerative disc disease, annular tears, and lumbar spine stenosis from 2022 to 2023. Surgical History: - No surgical procedures noted. Medications: - Imipramine for neuropathic pain or fib romyalgia - Gabapentin for neuropathic pain or fib romyalgia - Metoprolol XL for heart failure and ta chycardia - Diltiazem for palpitations - Duloxetine for chronic pain management - NSAIDs for chronic pain management Review of Systems - Cardiovascular: Reports palpitations - Respiratory: Reports dyspnea - Musculoskeletal: Reports widespread pa in in back, shoulders, and limbs 10-point ROS reviewed and negative excep t as noted in HPI Past Medical History - Neuropathic pain or fibromyalgia since at least 2009 - Heart failure with preserved ejection fraction - Idiopathic pulmonary hypertension - Morbid obesity - Type 2 diabetes mellitus - Obstructive sleep apnea - Chronic pain syndrome secondary to fib romyalgia - Extensive degenerative joint and disc disease Health Maintenance Physical Exam General: Well-appearing, in no acute distress. Vital signs: Within normal limits. HEENT: Normocephalic, atraumatic. PERRLA, EOMI. Conjunctiva clear, sclera anicteric. Oropharynx clear, mucous membranes moist. TMs intact bilaterally. Neck: Supple, no lymphadenopathy, no thyromegaly, no JVD or carotid bruits. Cardiovascular: RRR, normal S1/S2, no murmurs, rubs, or gallops. Peripheral pulses 2+ and symmetric. No edema. Respiratory: Lungs clear to auscultation bilaterally, no wheezes, rales, or rhonchi. Normal effort. Abdomen: Soft, non-tender, non-distended. Normoactive bowel sounds. No hepatosplenomegaly, no masses. MSK: Full range of motion, no joint swelling or deformity. Normal gait. Skin: Warm, dry, intact. No rashes, lesions, or pallor. Neuro: Alert and oriented x3. Cranial nerves II-XII intact. Strength 5/5 throughout. Sensation intact. Reflexes 2+ symmetric. Normal coordination and gait. Psych: Appropriate mood and affect. Normal judgment and insight. Plan 1. Heart Failure With Preserved Ejection Fraction - Continue metoprolol XL; benefits in jojo boyce heart rate, BP - Follow-up with cardiology regularly to monitor heart function 2. Idiopathic Pulmonary Hypertension - Regularly monitor pulmonary pressures and symptoms 3. Morbid Obesity - Aggressive weight management with curr ent medications - Discuss evaluation for bariatric surge ry; significant potential benefits highlighted 4. Type 2 Diabetes Mellitus - Lifestyle modifications with dietary f ocus; glucose monitoring 5. Obstructive Sleep Apnea - Maintain CPAP therapy; address complia nce and overall efficacy 6. Chronic Pain Syndrome Secondary To Fi bromyalgia - Continue multimodal pain management; c onsult pain management if needed Rheumatology appointment pending since since local inspector and clerk did not treat fibromyalgia 7. Extensive Degenerative Joint And Disc Disease - Continue pain management strategies; e valuate surgical options if necessary MRI of C-spine and lumbar spine ordered with follow-up with Neurosurgery Discussion Notes I discussed potential interventions and follow-up necessary given the management of multiple chronic conditions. We reviewed the health benefits of the current weight management plan and explored advanced treatment options such as bariatric surgery. The importance of maintaining regular cardiology and pulmonary evaluations was emphasized alongside diabetes management through dietary changes. Clinical implications of CPAP therapy efficacy and compliance were reviewed with potential referrals to specialist care. The patient was encouraged to maintain regular follow-ups in pain management support, given the persistent fibromyalgia syndrome and degenerative diseases. Patient Instructions - Continue your current medications as p rescribed. - Maintain a diabetic-friendly diet and exercise routine. - Follow up with your specialist appoint ments as scheduled. - Use your CPAP machine every night for sleep apnea. - Contact the clinic if symptoms worsen or new issues arise. Medical Decision Making The patient's management involves addressing multiple chronic conditions. For heart failure and pulmonary hypertension, the continuation of medications is crucial to managing cardiac status. Metabolic conditions, including obesity and diabetes, require sustained lifestyle interventions, emphasizing the potential of bariatric surgery for obesity. Comprehensive pain management is paramount in treating fibromyalgia and joint diseases, with regular reassessment for surgical options, PRN. Ensuring compliance with CPAP therapy remains vital for improving quality of life and mitigating sleep apnea complications. My goal is to stabilize the patient's current conditions while progressively reducing risks through weight reduction and diabetes control. Regular follow-ups will be bell in adapting treatment strategies as needed. Total time spent caring for the patient today was 30 minutes. This includes time spent before the visit reviewing the chart, time spent documenting, and time spent reviewing laboratory results, diagnostic imaging, medications, performing a medically necessary evaluation, counseling on diagnoses, care coordination, ordering appropriate tests, ordering appropriate medications, review of tests performed by other providers, reporting test results with the patient. [facility] Medical History (Updated 12/10/24 @ 11:11 by Saroj Horner MD) Fibrosis of liver Spinal stenosis Family History Father Heart problem Diabetes Mother Fibromyalgia Diabetes High blood pressure Social History Housing: Apartment Alcohol intake: current Alcohol intake frequency: does not drink Patient Tobacco Use Status: Current everyday Tobacco user Cigarettes Per Day: 4 service: No Current occupational status: disabled Cognitive needs: No Hearing needs: No Vision needs: Yes (rx glasses) Questionnaire Thrive Questionnaire Date Thrive assessed: 10/31/24 I am a: Patient What is your living situation today?: I have a steady place to live Within the past 12 months, did the food you bought not last and you didn't have the money to get more?: Never true Within the past 12 months, did you worry whether your food would run out before you got money to buy more?: Never true Do you have trouble paying for medicines?: No Do you have trouble getting transportation to medical appointments?: Yes Do you have trouble paying your heating and electricity bill?: No Do you have trouble taking care of your child, family member or friend?: No Do you have trouble with day-to-day activities such as bathing, preparing meals, shopping, managing finances, etc.?: No Are you currently unemployed and looking for a job?: No Are you interested in more education?: No Please select the resources that you would like help with: None Currently or been in a relationship where the following occur: No concerns reported THRIVE Score: 1 HINA-7 AMB Questionnaire HINA-7 Date HINA - 7 assessed: 10/31/24 Source: Developed by Drs. Joni Casas, Luma Carmichael, Claudio Moncada and colleagues, with an educational meggan from [employer]. Physical exam (Primary Care) Vital Signs: Last Vital Signs Temp 98.2 F 12/10/24 10:32 Pulse 102 H 12/10/24 10:32 Resp 16 12/10/24 10:32 BP 110/66 12/10/24 10:32 Pulse Ox 99 12/10/24 10:32 Oxygen Delivery Method Room Air 12/10/24 10:32 BMI result Body Mass Index 38.7 Tobacco/Smoking Status: Tobacco use Status Tobacco use date assessed 12/10/24 12/10/24 10:39 Patient Tobacco Use Status Current everyday Tobacco 12/10/24 10:39 Thrive Assessment: Date of Thrive Assessment Date Thrive assessed 10/31/24 12/10/24 10:39 Currently or been in a relationship where the following occur: No concerns reported Coding Level of Care Code Est Pt Level 4 (82059) Diagnoses Lumbar radiculopathy, chronic M54.16 Spinal stenosis M48.00 Idiopathic pulmonary hypertension I27.0 Heart failure with preserved ejection fraction I50.30 Morbid obesity due to excess calories E66.01 Type 2 diabetes mellitus E11.9 Obstructive sleep apnea G47.33 Chronic pain syndrome G89.4 Fibromyalgia M79.7 DJD (degenerative joint disease) of cervical spine M47.812 Assessment & Plan Assessment & Plan (1) Lumbar radiculopathy, chronic: Code(s): M54.16 - Radiculopathy, lumbar region Category: Medical (2) Spinal stenosis: Code(s): M48.00 - Spinal stenosis, site unspecified Category: Medical (3) Idiopathic pulmonary hypertension: Code(s): I27.0 - Primary pulmonary hypertension (4) Heart failure with preserved ejection fraction: Code(s): I50.30 - Unspecified diastolic (congestive) heart failure (5) Morbid obesity due to excess calories: Code(s): E66.01 - Morbid (severe) obesity due to excess calories (6) Type 2 diabetes mellitus: Code(s): E11.9 - Type 2 diabetes mellitus without complications (7) Obstructive sleep apnea: Code(s): G47.33 - Obstructive sleep apnea (adult) (pediatric) (8) Chronic pain syndrome: Code(s): G89.4 - Chronic pain syndrome (9) Fibromyalgia: Code(s): M79.7 - Fibromyalgia (10) DJD (degenerative joint disease) of cervical spine: Code(s): M47.812 - Spondylosis without myelopathy or radiculopathy, cervical region Plan Orders: Orders MR lumbar spine wo con Today M48.00 - Spinal stenosis, site unspecified, M54.16 - Radiculopathy, lumbar region MR cervical spine wo con Today M48.00 - Spinal stenosis, site unspecified Referrals Gastroenterology Referral K74.00 - Hepatic fibrosis, unspecified Neuro Spine Referral M48.00 - Spinal stenosis, site unspecified, M54.16 - Radiculopathy, lumbar region Medical Weight Management Referral E66.9 - Obesity, unspecified, K74.00 - Hepatic fibrosis, unspecified, M48.00 - Spinal stenosis, site unspecified, M54.16 - Radiculopathy, lumbar region Medications: New gabapentin 400 mg PO BID 180 caps 0RF tirzepatide (Mounjaro) 7.5 mg (0.5 mL) subcut QWEEK 2 mL 0RF Discontinued tirzepatide (weight loss) (Zepbound) She is on the 7.5 mg dose I want her to receive an injection once a week for a month however you dispense it it does not matter to me as long as she receives an injection once a week of 7.5 mg thank you Discontinued Reason: Doctor's Order 7.5 mg (0.75 mL) subcut QWEEK 2 mL 0RF
[2024-12-10 10:32] VITALS: BP 110/66; PULSE 102; RESP 16; TEMP 36.8; O2SAT 99; BMI 38.7
== END 2024-12-10 11:17 | disposition home or self-care (01) ==
LOC: HO.HMCFMS 10:27
PROVIDERS: PCP Student in an Organized Health Care Education/Training Program; Visit Provider Student in an Organized Health Care Education/Training Program
DX: M54.16 Radiculopathy, lumbar region (principal); M48.00 Spinal stenosis, site unspecified; I27.0 Primary pulmonary hypertension; I50.30 Unspecified diastolic (congestive) heart failure; E66.01 Morbid (severe) obesity due to excess calories; E11.9 Type 2 diabetes mellitus without complications; G47.33 Obstructive sleep apnea (adult) (pediatric); G89.4 Chronic pain syndrome; M79.7 Fibromyalgia; M47.812 Spondylosis without myelopathy or radiculopathy, cervical region

== ENCOUNTER → 2024-12-10 10:26 | Outpatient (BNVA) | payer OTHER, SELFPAY | PROVIDERS: PCP Student in an Organized Health Care Education/Training Program; Visit Provider Student in an Organized Health Care Education/Training Program | DX: M54.16 Radiculopathy, lumbar region (principal); M48.00 Spinal stenosis, site unspecified; I27.0 Primary pulmonary hypertension; I50.30 Unspecified diastolic (congestive) heart failure; E66.01 Morbid (severe) obesity due to excess calories; Z68.38 Body mass index [BMI] 38.0-38.9, adult; E11.9 Type 2 diabetes mellitus without complications; G47.33 Obstructive sleep apnea (adult) (pediatric); G89.4 Chronic pain syndrome; M79.7 Fibromyalgia; M47.812 Spondylosis without myelopathy or radiculopathy, cervical region; Z79.899 Other long term (current) drug therapy | CPT/HCPCS: 99212 ==

== ENCOUNTER 2024-12-12 11:55 | Outpatient (REF) | payer OTHER, SELFPAY | END 2024-12-12 11:56 | disposition home or self-care (01) | LOC: HO.MAMMO 11:55 | PROVIDERS: PCP Student in an Organized Health Care Education/Training Program; Visit Provider Student in an Organized Health Care Education/Training Program | DX: Z13.89 Encounter for screening for other disorder (principal) ==

== ENCOUNTER 2024-12-31 08:20 | Outpatient (REF) | payer OTHER, SELFPAY ==
--- NOTE | 2024-12-31 08:24 | EMG_ITS ---
Chief complaint: numbness and pain in bilateral lower extremities Reason for referral: G62.9 Polyneuropathy of lower extremities Referred by: Karen Pineda MD Procedure done: NCS and EMG of bilateral lower extremities Bilateral peroneal and tibial motor studies were performed. Bilateral superficial peroneal, sural, and median and lateral mixed plantars sensory studies were performed. Tibial H reflexes were obtained an EMG was performed. Findings: Sensory studies in legs revealed mild slowing of conduction velocity. In feet, sensory amplitudes were significantly diminished with slow conduction velocity. Motor studies did not reveal any significant abnormality. 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
== END 2024-12-31 08:21 | disposition home or self-care (01) ==
LOC: HO.NEURO 08:20
PROVIDERS: PCP Student in an Organized Health Care Education/Training Program; Visit Provider Student in an Organized Health Care Education/Training Program
DX: R20.0 Anesthesia of skin (principal); G62.9 Polyneuropathy, unspecified; M79.605 Pain in left leg; M79.604 Pain in right leg
CPT/HCPCS: 95886; 95913

== ENCOUNTER → 2024-12-31 08:24 | Outpatient (BNV) | payer OTHER, SELFPAY | PROVIDERS: PCP Student in an Organized Health Care Education/Training Program; Visit Provider Psychiatry & Neurology Neurology | DX: G62.89 Other specified polyneuropathies (principal) | CPT/HCPCS: 95886; 95913 ==

== ENCOUNTER 2025-01-07 10:07 | Outpatient (AMB) | payer OTHER, SELFPAY ==
[2025-01-07 10:19] VITALS: BP 114/72; PULSE 108; O2SAT 96; BMI 39.0
--- NOTE | 2025-01-07 10:19 | A.OFFVIS_ITS ---
Vital Signs 01/07/25 10:19 Height 5 ft 3 in Weight 220 lb 7.396 oz BMI 39.0 BP 114/72 Blood Pressure Location Lt brachial Position Sitting Pulse 108 H Pulse Source Pulse Oximeter Pulse Oximetry (%) 96 Oxygen Delivery Method Room Air Intake Visit Reasons: Obstructive sleep apnea Process Automation Engineer Required: Yes Process Automation Engineer Services: Process Automation Engineer Offered & Declined Process Automation Engineer Name: MD speaks yoruba Accompanied by: Self / Same As Patient Allergies No Known Allergies Allergy (Verified 01/07/25 10:33) HPI Comments Details: The patient is here for pulmonary evaluation. The patient is a 49 year woman with known history of obstructive sleep apnea in addition to significant cardiovascular risk factors. The patient has been on CPAP for many years in [place]. She does uses CPAP every night for more than 4 hours a night. However, she moved to the [facility] and now she does not have access to any supplies. The patient needs to get we diagnosed with sleep apnea. The patient also has significant cardiovascular risk factors as mentioned before and she has significant tachycardia. She has followed up with Cardiology in the past while living in [place]. Now she is going to reestablish. In exam she does have significant tachycardia. It is not clear the etiology at this time. Therefore will going to request an in-lab sleep study at this time to better address both. In addition to that the patient has been having shortness of breath with activity. Moderate severity even when going up a flight of stairs. She does not use any inhalers. I will provide her a rescue inhaler so she can use it as needed but since she has a tachycardia will give her some ipratropium short- acting muscarinic antagonist. Will also request a chest x-ray and pulmonary function studies. Once the patient has all her studies will going to go ahead and reconvene in follow-up review the results. In the meantime the patient does have an elevated [place] score of 11/24 when not using the CPAP. The patient does have significant cardiovascular risk factors and using the CPAP is very important for her. Therefore will get her active with the [facility] once we can reconfirm the diagnosis of sleep apnea. [facility] Medical History (Updated 01/07/25 @ 20:48 by Anurag Landeros MD) Tachycardia Dyspnea ALVARADO (obstructive sleep apnea) Fibrosis of liver Spinal stenosis Surgical History (Updated 01/01/25 @ 10:14 by Viviane Cornejo CMA) Hx of tubal ligation Hx of appendectomy Family History Father Heart problem Diabetes Mother Fibromyalgia Diabetes High blood pressure Social History Housing: Apartment Alcohol intake: current Alcohol intake frequency: holidays/special occasions only Patient Tobacco Use Status: Current everyday Tobacco user Cigarettes Per Day: 6 service: No Current occupational status: disabled Cognitive needs: No Hearing needs: No Vision needs: Yes (rx glasses) Review of Systems Const Reports daytime sleepiness, Reports difficulty sleeping and Reports snoring ENT Reports nasal congestion Card Denies chest pain and Reports dyspnea on exertion Resp Reports dyspnea on exertion, Reports snoring and Denies wheezing GI Reports no additional complaints Musc Reports myalgias Skin/Breast Denies rash Neuro Reports paresthesias Noe/Lymph Reports no additional complaints Aller/Immun Denies wheezing Physical Exam Vital Signs: Last Vital Signs Pulse 108 H 01/07/25 10:19 BP 114/72 01/07/25 10:19 Pulse Ox 96 01/07/25 10:19 Oxygen Delivery Method Room Air 01/07/25 10:19 BMI result Body Mass Index 39.0 Const General: comfortable HEENT Head: Yes normocephalic Neck Neck: Yes supple Chest Chest palpation & inspection: normal inspection of the chest Resp Effort & Inspection: normal respiratory effort Auscultation: diminished lung sounds Cardio Rate: tachycardic Heart sounds: S1 normal heart sound present and S2 normal heart sound present GI Palpation (GI): Soft to palpation Skin General skin exam: no rashes or lesions noted Extrem General: No clubbing and No cyanosis Assessment & Plan Assessment & Plan (1) ALVARADO (obstructive sleep apnea): Code(s): G47.33 - Obstructive sleep apnea (adult) (pediatric) Category: Medical (2) Dyspnea: Code(s): R06.00 - Dyspnea, unspecified Category: Medical Qualifiers: Dyspnea type: dyspnea on exertion Qualified Code(s): R06.09 - Other forms of dyspnea (3) Tachycardia: Code(s): R00.0 - Tachycardia, unspecified Category: Medical Plan in lab PSG PFTs CXR ECHO Start AYDIN as needed F/U 3 months Orders: Orders RT PSG in-lab sleep study Today G47.33 - Obstructive sleep apnea (adult) (pediatric), R06.00 - Dyspnea, unspecified PFT pulmonary function test Today G47.33 - Obstructive sleep apnea (adult) (pediatric), R06.00 - Dyspnea, unspecified CA echo transthoracic complete Today I27.20 - Pulmonary hypertension, unspecified XR chest 2V Today G47.33 - Obstructive sleep apnea (adult) (pediatric), R06.00 - Dyspnea, unspecified Medications: New ipratropium bromide 17 mcg/actuation (Atrovent HFA) 2 puffs inhalation QID PRN 12.9 grams 11RF shortness of breath or wheezing 30 days Coding Level of Care Code New Pt Level 4 (35539) Diagnoses ALVARADO (obstructive sleep apnea) G47.33 Dyspnea on exertion R06.09 Dyspnea type: dyspnea on exertion Tachycardia R00.0 Time Spent (min) 40
== END 2025-01-07 10:51 | disposition home or self-care (01) ==
LOC: HO.HPS 10:08
PROVIDERS: PCP Student in an Organized Health Care Education/Training Program; Visit Provider Hospitalist
DX: G47.33 Obstructive sleep apnea (adult) (pediatric) (principal); R06.09 Other forms of dyspnea; R00.0 Tachycardia, unspecified
CPT/HCPCS: 99204

== ENCOUNTER → 2025-01-07 10:07 | Outpatient (BNVA) | payer OTHER, SELFPAY | PROVIDERS: PCP Student in an Organized Health Care Education/Training Program; Visit Provider Hospitalist | DX: G47.33 Obstructive sleep apnea (adult) (pediatric) (principal); R06.09 Other forms of dyspnea; R00.0 Tachycardia, unspecified | CPT/HCPCS: 99202 ==

== ENCOUNTER 2025-01-13 19:05 | Outpatient (REF) | payer OTHER, SELFPAY ==
--- NOTE | ~2025-01-13 | MR_ITS ---
EXAMINATION: MR LUMBAR SPINE WITHOUT IV CONTRAST History: M54.16 - Radiculopathy, lumbar region Technique: Sagittal T1, T2 and STIR, and axial T1 and T2 weighted images of the lumbar spine were obtained per departmental protocol. Comparison: There are no prior studies available for comparison. Findings: The vertebral bodies maintain normal height and marrow signal intensity. There is slight anterolisthesis of L3 on L4. The intervertebral discs maintain normal height and hydration. At T12-L1,there is no evidence of disc herniation, central spinal stenosis, or neural foraminal narrowing. At L1-2, there is no evidence of disc herniation, central spinal stenosis, or neural foraminal narrowing. At L2-3, there is no evidence of disc herniation, central spinal stenosis, or neural foraminal narrowing. At L3-4, there is a mild to moderate diffuse disc bulge. There is moderate osteoarthritis of the facet joints. There is no central spinal or neural foraminal stenosis. At L4-5, there is a mild disc bulge. There is facet and ligamentum flavum hypertrophy without central spinal stenosis. There is narrowing of the inferior recess of the right neural foramen. At L5-S1, there is a small central annular tear. There is mild facet osteoarthritis without central spinal or neural foraminal stenosis. The conus terminates at the T12-L1 level and demonstrates normal signal intensity. The visualized paraspinal soft tissues are unremarkable. MR/MR lumbar spine wo con Impression: 1. Slight anterolisthesis of L3 on L4, likely related to osteoarthritis of the facet joints. 2. Mild disc bulge at L4-5 causing narrowing of the inferior recess of the right neural foramen. 3. Small central annular tear at the L5-S1 level. Electronically signed by: Joni Cason MD 01/14/2025 07:39 AM EST
--- NOTE | ~2025-01-13 | MR_ITS ---
EXAMINATION: MR CERVICAL SPINE WITHOUT IV CONTRAST History: M48.00 - Spinal stenosis, site unspecified Technique: Sagittal T1, T2 and STIR, bilateral sagittal oblique T2, and axial T1, T2 and gradient echo images of the cervical spine were obtained per departmental protocol. Comparison: There are no prior studies available for comparison. Findings: The vertebral bodies maintain normal height and marrow signal intensity. There is reversal of the normal cervical lordosis at the C3-4 level. There is moderate degenerative disc disease with disc desiccation, loss of disc height, and osteophyte formation. At C2-3, there is no evidence of disc herniation or central spinal stenosis. There is osteoarthritis of the left facet joint causing mild neural foraminal narrowing. The right neural foramen is patent. At C3-4, there is a posterior disc/osteophyte complex which effaces the anterior subarachnoid space and causes mild central spinal stenosis. There is narrowing of the bilateral neural foramen secondary to uncovertebral joint hypertrophy. At C4-5, there is a posterior disc/osteophyte complex which effaces the anterior subarachnoid space causing mild central spinal stenosis. There is narrowing of the bilateral neural foramen secondary to uncovertebral joint hypertrophy. At C5-6, there is a posterior disc/osteophyte complex which is asymmetric to the right. This causes right neural foraminal narrowing without significant central spinal stenosis. At C6-7, there is a posterior disc/osteophyte complex which partially effaces the anterior subarachnoid space. There is narrowing of the left neural foramen secondary to uncovertebral joint hypertrophy. At C7-T1, there is no evidence of disc herniation, central spinal stenosis, or neural foraminal narrowing. The spinal cord demonstrates normal signal intensity. The visualized paraspinal soft tissues are unremarkable. MR/MR cervical spine wo con Impression: Reversal of the normal cervical lordosis at the C3-4 level. Moderate degenerative disc disease with disc/osteophyte complexes causing mild central spinal stenosis at the C3-4 and C4-5 levels and neural foraminal narrowing as described above. Electronically signed by: Joni Cason MD 01/14/2025 08:00 AM VIJAY
== END 2025-01-13 19:06 | disposition home or self-care (01) ==
LOC: HO.MRI 19:05
PROVIDERS: Visit Provider Student in an Organized Health Care Education/Training Program
DX: M54.16 Radiculopathy, lumbar region (principal); M48.02 Spinal stenosis, cervical region
CPT/HCPCS: 72141; 72148

== ENCOUNTER → 2025-01-13 19:13 | Outpatient (BNV) | payer OTHER, SELFPAY | PROVIDERS: Visit Provider Radiology Diagnostic Radiology | DX: M51.26 Other intervertebral disc displacement, lumbar region (principal); M51.A4 Intervertebral annulus fibrosus defect, small, lumbosacral region; M48.02 Spinal stenosis, cervical region | CPT/HCPCS: 72141; 72148 ==

== ENCOUNTER 2025-01-20 10:51 | Outpatient (AMB) | payer OTHER, SELFPAY ==
--- NOTE | 2025-01-20 11:02 | A.OFFPC_ITS ---
Vital Signs 01/20/25 11:08 Height 5 ft 3 in Weight 219 lb 8 oz BMI 38.9 BP 101/66 Blood Pressure Location Rt brachial Position Sitting Respiration 16 Pulse 93 Pulse Source Monitor Temp 97.7 F Temp Source Oral Pulse Oximetry (%) 98 Oxygen Delivery Method Room Air Intake Visit Reasons: Discuss Lab Studies Results Intake Note: lab studies results Commercial Roofing Estimator Required: No Commercial Roofing Estimator Name: Doctor speaks greenlandic Accompanied by: Self / Same As Patient Allergies No Known Allergies Allergy (Verified 01/20/25 11:05) Medication List - Last Reconciled 01/20/25 by Saroj Horner MD amitriptyline 100 mg PO BEDTIME atorvastatin (Lipitor) 40 mg PO DAILY dicyclomine 10 mg PO BID diltiazem HCl ER 60 mg PO BID duloxetine 20 mg PO BID empagliflozin (Jardiance) 25 mg PO DAILY gabapentin 800 mg PO BEDTIME gabapentin 400 mg PO BID hydrochlorothiazide 12.5 mg PO DAILY ipratropium bromide 17 mcg/actuation (Atrovent HFA) 2 puffs inhalation QID PRN 30 days Lactobacillus acidophilus (Abatinex) 100 mmu cells PO DAILY lorazepam 0.5 mg PO TID PRN metoprolol succinate ER 25 mg PO DAILY omeprazole 20 mg PO DAILY sulindac 200 mg PO BID tirzepatide (Mounjaro) 7.5 mg (0.5 mL) subcut QWEEK zolpidem 10 mg PO BEDTIME PRN Tobacco use date assessed: 12/10/24 Dental Screening Dental Screen Date: 12/10/24 HPI HPI Comments History of Present Illness Details History of Present Illness The patient is a 49 year old individual presenting for follow-up on MRI results, medication refills, and discussion of specialist referrals. Degenerative Spine Disease: The patient has chronic pain, which is being investigated with imaging. A recent MRI of the cervical and lumbar spine was performed after initial difficulties with insurance approval. The patient has a pending referral to neurosurgery, which was contingent upon obtaining these new imaging studies. The patient also has a scheduled appointment with a metal flow coordinator in March. Weight Management: The patient was evaluated by a weight management service and was told the patient qualifies for the program but is still waiting for an appointment to be scheduled. The patient is currently taking Mounjaro (Tirzepatide) and reports feeling that weight loss is faster with this medication. The patient notes a significant decrease in appetite, requiring a conscious effort to eat meals, which now consist of smaller portions of foods like salad, chicken, and rice. Medications: - Amitriptyline 100 mg - Atorvastatin 40 mg - Dicyclomine 10 mg - Diltiazem 60 mg - Duloxetine 20 mg - Jardiance 25 mg - Gabapentin 800 mg - Gabapentin 400 mg - Hydrochlorothiazide 12.5 mg - Ipratropium bromide (Atrovent) inhaler - Lactobacillus - Lorazepam - Metoprolol - Omeprazole - Sulindac - Tirzepatide (Mounjaro) - Zolpidem 10 mg for sleep Social History: - Travel: The patient is traveling to [facility] on January 28 for two months. - Transportation: The patient needs to c oordinate transportation for medical appointments. - Nutrition: Reports decreased appetite on current medication and has to remember to eat; consumes smaller portions than previously. Diagnostic Results: - Cervical Spine MRI: Findings include m oderate degenerative disc disease, osteophyte complexes, and mild central canal stenosis at C3-C4 and C4-C5. - Thoracic/Lumbar Spine MRI: Findings in clude osteoarthritis of the facet joints and a small disc bulge at T4-T5. Past Medical History - Degenerative disc disease - Spinal stenosis - Osteoarthritis Health Maintenance - Under care of a metal flow coordinator with a f ollow-up appointment in March. - Referral placed for neurosurgery consu ltation. - Enrolled in a weight management progra m; awaiting first appointment. [facility] Medical History (Updated 01/20/25 @ 12:48 by Saroj Horner MD) Bulging lumbar disc DJD (degenerative joint disease) of cervical spine Tachycardia Dyspnea ALVARADO (obstructive sleep apnea) Fibrosis of liver Spinal stenosis Surgical History Hx of tubal ligation Hx of appendectomy Family History Father Heart problem Diabetes Mother Fibromyalgia Diabetes High blood pressure Social History (Updated 01/20/25 @ 11:08 by Quinton Vizcarra CMA) Housing: Apartment Alcohol intake: current Alcohol intake frequency: holidays/special occasions only Patient Tobacco Use Status: Current everyday Tobacco user Cigarettes Per Day: 6 e-Cigarette/Vaping Use: Never Used Use of substances other than those prescribed or required for medical reasons: No service: No Current occupational status: disabled Cognitive needs: No Hearing needs: No Vision needs: Yes (rx glasses) Questionnaire Thrive Questionnaire Date Thrive assessed: 10/31/24 I am a: Patient What is your living situation today?: I have a steady place to live Within the past 12 months, did the food you bought not last and you didn't have the money to get more?: Never true Within the past 12 months, did you worry whether your food would run out before you got money to buy more?: Never true Do you have trouble paying for medicines?: No Do you have trouble getting transportation to medical appointments?: Yes Do you have trouble paying your heating and electricity bill?: No Do you have trouble taking care of your child, family member or friend?: No Do you have trouble with day-to-day activities such as bathing, preparing meals, shopping, managing finances, etc.?: No Are you currently unemployed and looking for a job?: No Are you interested in more education?: No Please select the resources that you would like help with: None Currently or been in a relationship where the following occur: No concerns reported THRIVE Score: 1 HINA-7 AMB Questionnaire HINA-7 Date HINA - 7 assessed: 10/31/24 Source: Developed by Drs. Joni Casas, Luma Carmichael, Claudio Moncada and colleagues, with an educational meggan from [employer]. Review of Systems Narrative Review of Systems - Musculoskeletal: Reports pain secondary to spinal conditions. - Constitutional: Reports weight loss and decreased appetite. - Psychiatric: Uses Zolpidem for sleep. 10-point ROS reviewed and negative except as noted in HPI Physical exam (Primary Care) Vital Signs: Last Vital Signs Temp 97.7 F 01/20/25 11:08 Pulse 93 01/20/25 11:08 Resp 16 01/20/25 11:08 BP 101/66 01/20/25 11:08 Pulse Ox 98 01/20/25 11:08 Oxygen Delivery Method Room Air 01/20/25 11:08 BMI result Body Mass Index 38.9 Tobacco/Smoking Status: Tobacco use Status Tobacco use date assessed 12/10/24 01/20/25 11:05 Patient Tobacco Use Status Current everyday Tobacco 01/20/25 11:08 e-Cigarette/Vaping Use Never Used 01/20/25 11:10 Thrive Assessment: Date of Thrive Assessment Date Thrive assessed 10/31/24 01/20/25 11:05 Currently or been in a relationship where the following occur: No concerns reported Narrative Physical Exam General: Well-appearing, in no acute distress. Vital signs: Within normal limits. HEENT: Normocephalic, atraumatic. PERRLA, EOMI. Conjunctiva clear, sclera anicteric. Oropharynx clear, mucous membranes moist. TMs intact bilaterally. Neck: Supple, no lymphadenopathy, no thyromegaly, no JVD or carotid bruits. Cardiovascular: RRR, normal S1/S2, no murmurs, rubs, or gallops. Peripheral pulses 2+ and symmetric. No edema. Respiratory: Lungs clear to auscultation bilaterally, no wheezes, rales, or rhonchi. Normal effort. Abdomen: Soft, non-tender, non-distended. Normoactive bowel sounds. No hepatosplenomegaly, no masses. MSK: Full range of motion, no joint swelling or deformity. Normal gait. Skin: Warm, dry, intact. No rashes, lesions, or pallor. Neuro: Alert and oriented x3. Cranial nerves II-XII intact. Strength 5/5 throughout. Sensation intact. Reflexes 2+ symmetric. Normal coordination and gait. Psych: Appropriate mood and affect. Normal judgment and insight. Coding Level of Care Code Est Pt Level 3 (14886) Diagnoses Lumbar radiculopathy, chronic M54.16 Spinal stenosis M48.00 DJD (degenerative joint disease) of cervical spine M47.812 Bulging lumbar disc M51.369 Obesity (BMI 35.0-39.9 without comorbidity) E66.9 Assessment & Plan Assessment & Plan (1) Lumbar radiculopathy, chronic: Code(s): M54.16 - Radiculopathy, lumbar region Category: Medical (2) Spinal stenosis: Code(s): M48.00 - Spinal stenosis, site unspecified Category: Medical (3) DJD (degenerative joint disease) of cervical spine: Code(s): M47.812 - Spondylosis without myelopathy or radiculopathy, cervical region Category: Medical (4) Bulging lumbar disc: Code(s): M51.369 - Other intervertebral disc degeneration, lumbar region without mention of lumbar back pain or lower extremity pain Category: Medical (5) Obesity (BMI 35.0-39.9 without comorbidity): Comment: A1c at 5.8 (11/14) Code(s): E66.9 - Obesity, unspecified Category: Medical Plan Consent Patient was informed and verbally consented to the use of an ambient scribe for clinic note documentation during this visit. Plan 1. Degenerative Spine Disease - Reviewed recent cervical and lumbar spine MRI findings with the patient, which show multilevel degenerative changes consistent with the patient's pain. - Resubmitted the referral to neurosurgery, now including the new imaging results, as this was required for consultation. - The patient will await contact from the neurosurgery department to schedule an appointment. - Continue current pain management regimen. 2. Weight Management - Increase Tirzepatide (Mounjaro) dose from 7.5 mg to 10 mg, as the current dose is well-tolerated. - Counseled the patient on the importance of maintaining adequate nutritional intake despite decreased appetite. - The patient will await a call from the weight management program for an appointment. 3. Medication Management - Prescribed a three-month supply of all current medications to ensure continuity of care during the patient's upcoming two-month trip to [place]. Discussion Notes I reviewed the patient's recent cervical and lumbar MRI results, explaining the findings of moderate degenerative disc disease with osteophytes causing mild central canal stenosis at C3-C4 and C4-C5, as well as lumbar facet osteoarthritis and a small disc bulge at T4-T5. I informed the patient that these findings likely explain the chronic pain. I have resubmitted the referral to neurosurgery now that the required imaging is available and advised the patient to await their call for an appointment. We discussed weight management, and since the patient is tolerating Mounjaro well, I have increased the dose from 7.5 mg to 10 mg to promote further weight loss. I counseled the patient to ensure adequate food intake despite reduced appetite. Due to the patient's upcoming two-month trip to [place], I have issued a three-month supply of all medications. Patient Instructions - Please wait for the neurosurgery department to call you to schedule an appointment. - Please also wait for a call from the weight management program to schedule your first visit. - You will increase your Mounjaro (Tirzepatide) dose from 7.5 mg to 10 mg with your next injection. - It is important to remember to eat your meals, even if you do not feel hungry. - A three-month supply of all your medications has been sent to your pharmacy to cover you for your trip to [place]. - Continue taking all your other medications as prescribed. Medical Decision Making The patient is a 49 year old individual here for a follow-up visit to review recent imaging and for chronic disease management. Review of the recent spine MRI reveals multilevel degenerative changes, including moderate cervical degenerative disc disease with mild central canal stenosis and lumbar facet osteoarthritis, which correlate with the patient's pain. Given these findings, a neurosurgical consultation for further evaluation and potential intervention is clinically appropriate; the referral has been resubmitted with the required imaging. For weight management, the patient is responding well to Tirzepatide (Mounjaro) with good tolerance. A dose increase from 7.5 mg to 10 mg is warranted to optimize therapeutic effect and continue progress towards weight loss, which will also have a positive downstream effect on musculoskeletal symptoms. To ensure continuity of care during the patient's planned two-month travel, a three-month supply of all chronic medications has been provided. Total Time Statement 20 min Total time spent caring for the patient today includes pre-visit chart review, documentation, review of laboratory and diagnostic imaging results, medication reconciliation, medically necessary evaluation, counseling on diagnoses, care coordination, ordering appropriate tests and medications, review of tests performed by other providers, reporting test results to the patient, and communication with other healthcare providers.
[2025-01-20 11:08] VITALS: BP 101/66; PULSE 93; RESP 16; TEMP 36.5; O2SAT 98; BMI 38.9
== END 2025-01-20 11:23 | disposition home or self-care (01) ==
LOC: HO.HMCFMS 10:52
PROVIDERS: PCP Student in an Organized Health Care Education/Training Program; Visit Provider Student in an Organized Health Care Education/Training Program
DX: M54.16 Radiculopathy, lumbar region (principal); M48.00 Spinal stenosis, site unspecified; M47.812 Spondylosis without myelopathy or radiculopathy, cervical region; M51.369 Other intervertebral disc degeneration, lumbar region without mention of lumbar back pain or lower extremity pain; E66.9 Obesity, unspecified

== ENCOUNTER → 2025-01-20 10:51 | Outpatient (BNVA) | payer OTHER, SELFPAY | PROVIDERS: PCP Student in an Organized Health Care Education/Training Program; Visit Provider Student in an Organized Health Care Education/Training Program | DX: M54.16 Radiculopathy, lumbar region (principal); M48.00 Spinal stenosis, site unspecified; M47.812 Spondylosis without myelopathy or radiculopathy, cervical region; M51.369 Other intervertebral disc degeneration, lumbar region without mention of lumbar back pain or lower extremity pain; E66.9 Obesity, unspecified; Z68.38 Body mass index [BMI] 38.0-38.9, adult; Z79.899 Other long term (current) drug therapy | CPT/HCPCS: 99212 ==

== ENCOUNTER 2025-01-27 12:59 | Outpatient (AMB) | payer OTHER, SELFPAY ==
--- NOTE | 2025-01-27 13:02 | HO.SPINEOV ---
Vital Signs 01/27/25 13:09 Height 5 ft 3 in Weight 219 lb BMI 38.8 Intake Visit Reasons: spinal stenosis/lumbar radiculopathy Intake Note: Ms. Shilpi Avila is here today c/o low back pain, MRI done at [facility]. Gear Repair Supervisor Required: Yes Gear Repair Supervisor Language: Sales Warehouse Driver Services: Gear Repair Supervisor Present Gear Repair Supervisor Name: Viviane JENN Mcghee Allergies No Known Allergies Allergy (Verified 01/27/25 13:05) Physical Exam Vital Signs: BMI result Body Mass Index 38.8 Assessment & Plan Assessment & Plan (1) DJD (degenerative joint disease) of cervical spine: Code(s): M47.812 - Spondylosis without myelopathy or radiculopathy, cervical region Category: Medical (2) Lumbar radiculopathy, chronic: Code(s): M54.16 - Radiculopathy, lumbar region Category: Medical Plan Dear Dr Horner, Thank you for referring Mrs Shilpi Avila to our office today. She is a very nice 49-year-old female history of fibromyalgia who is here for evaluation of what she describes as diffuse body pains. sandblast or shotblast equipment tender Viviane Barajas was used for this visit. She reports a multiyear history of pain in her neck, upper back, both of her arms, lower back, shooting down both of her legs. She has undergone physical therapy and cortisone injections through the years with absolutely no relief. She takes gabapentin duloxetine and sulindac to help with the issues. The pain is there all the time but his aggravated when she is doing her household activities. She had an MRI done showing some degenerative disc disease and was referred for an evaluation. PMH: She is a diabetic but very well controlled with an A1c of 5.7, osteoarthritis, heart palpitations, hypertension, pulmonary hypertension, liver disease, depression, anxiety, panic attacks, appendectomy, tubal ligation Social hx: She does not use any recreational drugs drink any alcohol but she does have about 5 cigarettes a day Medications: Metoprolol, duloxetine, lorazepam, Atrovent, gabapentin, Mounjaro, atorvastatin, omeprazole, amitriptyline, Jardiance, hydrochlorothiazide and sulindac Allergies: None Physical exam: Awake alert oriented no acute distress, strength in the upper and lower extremities is full with the exception of hip flexion which gives her some back pain. Reflexes are diminished at the patella and the Achilles, upper extremity reflexes are normal. Negative Tinel's, negative Phalen's. Imaging review: Cervical MRI done shows some reversal of the normal lordotic curvature of the cervical spine, most specifically at C3-4 and a little bit at C4-5. There is moderate foraminal stenosis. There is no central cord stenosis. Lumbar MRI done shows normal alignment, very slight anterior listhesis of L3 on L4 with some [id number] facet arthropathy. There is no foraminal or central canal stenosis. Impression: 49-year-old Angolan-speaking female, history of fibromyalgia presents with diffuse aches from her neck all the way down to her back, going down both arms as well as into her hips and her legs. Her MRI shows some mild findings that mostly appeared degenerative. What she is describing is severe high-level pain with an MRI that has just not demonstrating findings to correlate with this. This is fairly typical of fibromyalgia patients. It has been our experience that operating on patients with findings on imaging that are not severe, who have fibromyalgia often end up just feeling worse after the surgery and have poor outcomes. At this point her imaging does not raised to the level of meeting any surgical indication based on what she is describing. Unfortunately I do not think we can help her. She might be better served following up with pain management or working with her medications instead. Thank you for allowing us to care for your patient. The total time spent with this visit with this patient was 45 minutes reviewing history, physical exam, cervical and lumbar imaging review, and implementation of treatment plan or further diagnostic testing Giovanni Jasmine MD,PhD [facility] Coding Level of Care Code New Pt Level 4 (57104) Diagnoses DJD (degenerative joint disease) of cervical spine M47.812 Lumbar radiculopathy, chronic M54.16
[2025-01-27 13:09] VITALS: BMI 38.8
== END 2025-01-27 14:53 | disposition home or self-care (01) ==
LOC: HO.HNS 13:00
PROVIDERS: PCP Student in an Organized Health Care Education/Training Program; Referring Provider Student in an Organized Health Care Education/Training Program; Visit Provider Physician Assistant
DX: M47.812 Spondylosis without myelopathy or radiculopathy, cervical region (principal); M54.16 Radiculopathy, lumbar region
CPT/HCPCS: 99204

== ENCOUNTER → 2025-01-27 12:59 | Outpatient (BNVA) | payer OTHER, SELFPAY | PROVIDERS: PCP Student in an Organized Health Care Education/Training Program; Referring Provider Student in an Organized Health Care Education/Training Program; Visit Provider Physician Assistant | DX: M54.16 Radiculopathy, lumbar region (principal); M50.30 Other cervical disc degeneration, unspecified cervical region | CPT/HCPCS: 99202 ==